=== PATIENT | male | born 1955 | race Caucasian/White ===

== ENCOUNTER 2016-12-29 20:57 | Emergency (ER) | payer MEDICAID ==
[2016-12-29] MEDS ORDERED: AMPICILLIN SOD/SULBACTAM 3 GM VIAL IV ONE (23:21)
[2016-12-29] MEDS ORDERED: NORMAL SALINE 1000 ML 1,000 ML IV ONE (23:21)
[2016-12-29] MEDS ORDERED: ONDANSETRON HCL INJ/PF 4 MG/2 ML SDV IV ONE (23:21)
--- NOTE | 2016-12-29 23:27 | ER Document Report ---
ED General - General Chief Complaint: Toothache Stated Complaint: POSSIBLE ABCESS TOOTH Time Seen by Provider: 12/29/16 22:26 Notes: Patient is a 61-year-old male with past medical history of diabetes, hypertension, hyperlipidemia visiting family from [place] who presents with 4 days of progressively worsening pain and swelling to the right side of his face. Patient describes progressive worsening swelling since onset. He also notes an associated severe, constant, throbbing pain to the affected area. States touching area or trying to eat or drink worsens the pain. He has tried ibuprofen without any improvement of the pain. He has tried to get into a dentist but as his Medicaid is based out of [place] he has been unable to successfully find a dentist willing to see and treat him. He denies any difficulty breathing or swallowing. He has no history of similar symptoms in the past. He has not had any fever or constitutional symptoms. TRAVEL OUTSIDE OF THE [place] IN LAST 30 DAYS: No - Related Data Allergies/Adverse Reactions: No Known Allergies Allergy (Verified 12/29/16 22:14) Past Medical History - General Information source: Patient - Social History Smoking Status: Never Smoker Chew tobacco use (# tins/day): No Frequency of alcohol use: None Drug Abuse: None Lives with: Spouse/Significant other Family History: Reviewed & Not Pertinent Patient has suicidal ideation: No Patient has homicidal ideation: No - Past Medical History Cardiac Medical History: Reports: Hx Hypercholesterolemia, Hx Hypertension Endocrine Medical History: Reports: Hx Diabetes Mellitus Type 2 Renal/ Medical History: Denies: Hx Peritoneal Dialysis Past Surgical History: Reports: Hx Vascular Surgery - cataracts Review of Systems - Review of Systems Notes: Constitutional: Negative for fever. HENT: Positive for facial swelling Eyes: Negative for visual changes. Cardiovascular: Negative for chest pain. Respiratory: Negative for shortness of breath. Gastrointestinal: Negative for abdominal pain, vomiting or diarrhea. Genitourinary: Negative for dysuria. Musculoskeletal: Negative for back pain. Skin: Negative for rash. Neurological: Negative for headaches, weakness or numbness. 10 point ROS negative except as marked above and in HPI. Physical Exam - Vital signs Vitals: Temp Pulse Resp BP Pulse Ox 98.9 F 78 18 165/96 H 97 12/29/16 21:14 12/29/16 21:14 12/29/16 21:14 12/29/16 21:14 12/29/16 21:14 Interpretation: Hypertensive Notes: PHYSICAL EXAMINATION: GENERAL: Well-appearing, well-nourished and in no acute distress. HEAD: Atraumatic, normocephalic. EYES: Pupils equal round and reactive to light, extraocular movements intact, sclera anicteric, conjunctiva are normal. ENT: nares patent, prominent right-sided facial swelling. Tooth #31 appears to be partially cracked with some purulent drainage coming from the external side of the tooth NECK: Normal range of motion, supple without lymphadenopathy LUNGS: Breath sounds clear to auscultation bilaterally and equal. No wheezes rales or rhonchi. HEART: Regular rate and rhythm without murmurs ABDOMEN: Soft, nontender, normoactive bowel sounds. No guarding, no rebound. No masses appreciated. EXTREMITIES: Normal range of motion, no pitting or edema. No cyanosis. NEUROLOGICAL: No focal neurological deficits. Moves all extremities spontaneously and on command. PSYCH: Normal mood, normal affect. SKIN: Warm, Dry, normal turgor, no rashes or lesions noted. Course - Re-evaluation Re-evalutation: 12/29/16 23:26 Patient presents with prominent right facial swelling likely secondary to an infected tooth #31. The facial swelling itself actually appears indurated with some fluctuance and I am concerned that there may be an actual facial abscess. Will proceed with CT the face with contrast, IV antibiotics, IV fluids, labs and reassess 12/30/16 01:11 CT does not demonstrate any evidence of an actual abscess only inflammatory changes. Patient will be started on Augmentin, pain medications, and informed that he absolutely must have this tooth extracted within the next 24-48 hours regardless of his ability to use his Medicaid. I have explained to the patient at length the severity of the situation and the need to complete his follow-up expeditiously. At this time will discharge with return precautions and follow- up recommendations. Verbal discharge instructions given a the bedside and opportunity for questions given. Medication warnings reviewed. Patient is in agreement with this plan and has verbalized understanding of return precautions and the need for dental follow-up in the next 24-48 hours. - Vital Signs Vital signs: Temp Pulse Resp BP Pulse Ox 98.9 F 78 16 162/89 H 97 12/29/16 21:14 12/29/16 21:14 12/30/16 00:11 12/30/16 00:10 12/30/16 00:11 - Laboratory Result Diagrams: 12/29/16 23:35 12/29/16 23:35 Laboratory results interpreted by me: 12/29/16 12/29/16 23:35 23:35 WBC 13.4 H Glucose 196 H - Diagnostic Test Radiology reviewed: Image reviewed, Reports reviewed Radiology results interpreted by me: 12/30/16 01:16 CT of the face: Prominent swelling of the right side of the face but no distinct fluid collection Discharge - Discharge Clinical Impression: Facial swelling, Dental infection Condition: Good Disposition: HOME, SELF-CARE Additional Instructions: The CT scan does not show an abscess but does show significant inflammation of your facial tissues from the infected rear molar on your right side. It is critical that you get in to see dentist within the next 1-2 days. You cannot delay this and will need to find some way to pay for that tooth extraction. Please take antibiotics as prescribed. Take ibuprofen 600 mg every 6 hours as needed for pain and use the [place] with which she was sent home for pain that is not controlled by ibuprofen. Prescriptions: Amox Tr/Potassium Clavulanate [Augmentin 875-125 Tablet] 1 tab PO BID 10 Days tablet
[2016-12-29] MEDS: MORPHINE SULFATE 10 MG/ML INJ IV PRN (23:41)
[2016-12-29 23:50] LABS: ABSOLUTE BASOPHILS # (AUTO) 0.1 10^3/uL (0.0-0.2); ABSOLUTE EOSINOPHILS # (AUTO) 0.3 10^3/uL (0.0-0.6); ABSOLUTE LYMPHOCYTES (AUTO) 3.7 10^3/uL (0.5-4.7); ABSOLUTE MONOCYTES (AUTO) 1.4 10^3/uL (0.1-1.4); ABSOLUTE NEUT (AUTO) 7.9 10^3/uL (1.7-8.2); BASOPHILS % (AUTO) 0.8 % (0-2); EOSINOPHILS % (AUTO) 1.9 % (0-6); HEMOGLOBIN 16.8 g/dL (13.5-17.0); HGB HCT DIFFERENCE 2.4; LYMPHOCYTES % (AUTO) 27.3 % (13-45); MEAN CORPUSCULAR HEMOGLOBIN 31.8 pg (27.0-33.4); MEAN CORPUSCULAR VOLUME 91 fl (80-97); MONOCYTES % (AUTO) 10.8 % (3-13); RED BLOOD COUNT 5.28 10^6/uL (4.35-5.55); RED CELL DISTRIBUTION WIDTH 13.1 % (11.5-14.0); SEGMENTED NEUTROPHILS % (AUTO) 59.2 % (42-78); WHITE BLOOD COUNT 13.4 10^3/uL (4.0-10.5)
[2016-12-30 00:01] LABS: ANION GAP 15 (5-19); BLOOD UREA NITROGEN 18 mg/dL (7-20); CALCIUM 10.1 mg/dL (8.4-10.2); CARBON DIOXIDE 24 mmol/L (22-30); CHLORIDE 102 mmol/L (98-107); CREATININE RESULT 0.95 mg/dL (0.52-1.25); GLUCOSE 196 mg/dL (75-110); POTASSIUM 4.1 mmol/L (3.6-5.0); SODIUM 140.9 mmol/L (137-145)
[2016-12-30] MEDS: MORPHINE SULFATE 10 MG/ML INJ IV PRN (00:10)
--- NOTE | 2016-12-30 01:10 | RADIOLOGY REPORT (SQ) ---
EXAM DESCRIPTION: CT FACIAL AREA WITH CLINICAL HISTORY: Left facial edema and pain. COMPARISON: None available TECHNIQUE: CT of the face obtained following the uncomplicated intravenous administration of 75 mL Isovue-370. FINDINGS: No abnormalities of the visualized orbits or globes. Visualized paranasal sinuses are well aerated. Mastoid air cells are well aerated. Edema of the right masseter muscle overlying the mandible without well-circumscribed fluid collection. No fracture of the facial bones identified. Visualized skull base and cervical spine are intact. No abnormality of the visualized intracranial contents. Atherosclerotic calcification of the carotid arteries. No abnormalities of the parotid or submandibular glands. The tongue base is symmetric. DLP: 232.62 mGy-cm IMPRESSION: 1. Inflammatory change of the right facial soft tissues and edema of the right masseter muscle without well-circumscribed fluid collection identified. This exam was performed according to our departmental dose-optimization program, which includes automated exposure control, adjustment of the mA and/or kV according to patient size and/or use of iterative reconstruction technique.
[2016-12-30] MEDS ORDERED: HYDROCODONE/ACETAMINOPHEN 5-325 MG 6 TAB/DSPK PO PRN (01:14)
[2016-12-30 01:23] VITALS: BP 159/96
== END 2016-12-30 01:23 | disposition home or self-care (01) ==
LOC: ER 20:57
DX: K04.7 Periapical abscess without sinus (principal); R22.0 Localized swelling, mass and lump, head; K08.89 Other specified disorders of teeth and supporting structures; E11.9 Type 2 diabetes mellitus without complications; I10 Essential (primary) hypertension; E78.5 Hyperlipidemia, unspecified
CPT/HCPCS: 99284; 96375; 96365; 36415; 85025; 80048; 70487; J0295; J2270 ×2; J2405; J7030